=== PATIENT | male | born 1935 | race Caucasian/White ===

== ENCOUNTER 2017-06-16 13:39 | Outpatient (CLI) | payer MEDICARE ==
--- NOTE | 2017-06-16 14:32 | RAD ---
RIGHT SHOULDER THREE VIEWS: History: Fall. Right shoulder pain. FINDINGS/IMPRESSION: Degenerative changes are present. No acute fracture or dislocation identified. POS: [facility]
== END 2017-06-16 13:40 | disposition home or self-care (01) ==
LOC: SCSRAD 13:39
PROVIDERS: ATTEND Nurse Practitioner Family
DX: M25.511 Pain in right shoulder (principal); M19.011 Primary osteoarthritis, right shoulder

== ENCOUNTER 2017-12-06 10:50 | Emergency (ER) | payer MEDICARE ==
[2017-12-06 11:35] LABS: #Lymphocytes 0.9 thou/uL (1.20-3.40); #Monocytes 0.6 thou/uL (0.11-0.59); #Neutrophils 6.3 thou/uL (1.40-6.50); %Basophils 0.1 % (0.0-1.0); %Eosinophils 0.5 % (0.0-10.0); %Lymphocytes 11.4 % (21.0-51.0); %Monocytes 7.6 % (0.0-10.0); %Neutrophils 80.4 % (42.0-75.0); Hemoglobin 17.9 g/dL (14.0-18.0); Mean Corpuscular HGB CONC 33.8 g/dL (32.0-36.0); Mean Corpuscular Hemoglobin 30.2 pg (27.0-31.0); Mean Corpuscular Volume 89.3 fL (78.0-98.0); Mean Platelet Volume 7.5 fL (7.4-10.4); Platelet Count 209 thou/uL (130-400); RBC Distribution Width 12.1 % (11.5-14.5); Red Blood Cell (RBC) Count 5.91 mill/uL (4.70-6.10); White Blood Cell (WBC) Count 7.8 thou/uL (4.8-10.8)
[2017-12-06] MEDS ORDERED: Dexamethasone 4 mg/ml Vial ONE (11:40)
[2017-12-06 11:56] LABS: ALT (SGPT) 13 U/L (8-55); AST (SGOT) 26 U/L (5-34); Albumin 4.5 g/dL (3.4-4.8); Alkaline Phosphatase 95 U/L (40-150); Anion Gap 12 mmol/L (10-20); BUN (Urea Nitrogen) 18 mg/dL (8.4-25.7); Bilirubin, Total 1.4 mg/dL (0.2-1.2); Calc. Creatinine Clearance 0 mL/min (70-130); Calcium 9.6 mg/dL (7.8-10.44); Carbon Dioxide 24 mmol/L (23-31); Chloride 103 mmol/L (98-107); Estimated GFR-MDRD 59; Globulin 3.1 g/dL (2.4-3.5); Glucose 157 mg/dL (83-110); Potassium 4.3 mmol/L (3.5-5.1); Protein, Total 7.6 g/dL (5.8-8.1); Sodium 135 mmol/L (136-145)
[2017-12-06] MEDS ORDERED: Ketorolac Tromethamine 30 MG/ML VIAL ONE (13:44)
--- NOTE | 2017-12-06 15:18 | MRI ---
MRI LUMBAR SPINE NONCONTRAST: DATE: 12/06/17. HISTORY: An 82-year-old male with low back pain and right lower extremity weakness, difficulty walking. Rule out cauda equina syndrome and rule out cord compression. COMPARISON: 10/12/16. FINDINGS: For the purposes of this report, it will be assumed that there are 5 lumbar-type vertebrae. Vertebra l body heights are maintained. Bone marrow signal is normal. Predominantly mild disk space narrowin g at all levels. The worst level is L3-4, where there is moderate disk space narrowing. Images obta ined from T10-11 through mid S2. There is no cord impingement at any level from T10-11 to the conus medullaris, which terminates at L1 -2. T10-11: Right paracentral shallow disk herniation effacing the right ventral aspect of the thecal sa c. Mild central stenosis. Mild to moderate right neural foraminal stenosis. No left neural foramin al stenosis. T11-12: Only imaged on sagittal images. Essentially normal. T12-L1: Small left paracentral focal disk herniation. No central stenosis. Mild left neural forami nal stenosis. L1-2: Central and left paracentral focal disk herniation. No significant central stenosis and no si gnificant neural foraminal stenosis. L2-3: Mild diffuse disk bulge. No central stenosis and no significant neural foraminal stenosis. L3-4: Thickened ligamentum flavum. Prominent diffuse disk bulge. Superimposed left paracentral/lat eral disk extrusion with inferior migration of extruded disk material. This was present previously, but the inferior migration is slightly greater on the current MRI, to the pedicle level of L4, effaci ng the left side of the spinal canal and thecal sac, posteromedially displacing the left L4 nerve henry t. Overall moderate degree of central spinal canal stenosis. Moderate bilateral neural foraminal st enosis. Mild to moderate bilateral degenerative facet disease. Ligamentum flavum thickening. L4-5: Diffuse disk bulge plus superimposed small central disk herniation with mild inferior migratio n of extruded disk material to the pedicle level of L5. This contacts the bilateral L5 nerve roots. No significant central spinal canal stenosis despite this. Mild to moderate bilateral neural forami nal stenosis. Degenerative facet changes are mild to moderate. 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 There is mild to moderate right neural foraminal stenosis, and severe left neural foraminal stenosis, which has worsened since 10/12/16, with left lateral and fat lateral component of broad-based disk he rniation impinging on the exiting left L5 nerve root. The spinal canal and thecal sac are generous i n caliber. IMPRESSION: 1. Lumbar spondylosis, with multilevel mild and moderate degenerative disk disease. 2. Moderate central spinal canal stenosis at L3-4. 3. Left lateral extruded disk herniation at L3-4 displacing the left L4 nerve root. 4. Interval worsening of now severe left neural foraminal stenosis at L5-S1, impinging on the exitin g left L5 nerve root. 5. Bilateral L5 spondylolysis causing grade I spondylolisthesis at L5-S1. 6. No impingement upon the lower spinal cord. NEREIDA Flores POS: [facility]
== END 2017-12-06 17:25 ==
LOC: ERS 10:50
DX: M51.16 Intervertebral disc disorders with radiculopathy, lumbar region (principal); E11.9 Type 2 diabetes mellitus without complications; E03.9 Hypothyroidism, unspecified; E78.5 Hyperlipidemia, unspecified; I10 Essential (primary) hypertension; Z79.84 Long term (current) use of oral hypoglycemic drugs; Z79.899 Other long term (current) drug therapy
CPT/HCPCS: 72148; 80053; 85025; 96374; 96375; 96376; J1100; J1885; J2270

== ENCOUNTER 2018-02-11 10:38 | Outpatient (CLI) | payer MEDICARE ==
--- NOTE | 2018-02-11 16:27 | NM ---
NUCLEAR MEDICINE BONE SCAN: 02/11/18 HISTORY: Malignant neoplasm of the prostate. Rising PSA. COMPARISON: 09/07/16. TECHNIQUE: Patient is administered 31 millicuries of technetium 99m MDP intravenously. After appropriate delay, whole body imaging is performed. FINDINGS: There is physiologic and expected distribution of the radiotracer. Persistent uptake in both knees an d shoulders as well as the cervical spine on the basis of degenerative change. Limited evaluation of the pelvis due to urinary retention. There is urinary contamination in the pelv is. IMPRESSION: No scintigraphic evidence of osseous metastasis. POS: [facility]
== END 2018-02-11 10:39 | disposition home or self-care (01) ==
LOC: NM 10:38
PROVIDERS: ATTEND Urology
DX: R97.21 Rising PSA following treatment for malignant neoplasm of prostate (principal); N39.0 Urinary tract infection, site not specified
CPT/HCPCS: 78306; A9503

== ENCOUNTER 2018-02-21 10:33 | Outpatient (CLI) | payer MEDICARE ==
--- NOTE | 2018-02-21 14:57 | CT ---
CT ABDOMEN AND PELVIS WITH AND WITHOUT IV CONTRAST: Date: 02/21/18 HISTORY: 82-year-old male with prostate cancer and elevated PSA. FINDINGS: There are vascular calcifications without evidence of dilatation of the abdominal aorta. The lung bas es are unremarkable. The liver, spleen, pancreas, and adrenal glands are unremarkable. No calcified g allstones are seen. There is a large duodenal diverticulum arising from the second portion of the duo denum. No calculi seen in the kidneys, ureters, or the urinary bladder. No hydroureteronephrosis seen on eit her side. Postcontrast images demonstrate no evidence of enhancing or solid renal mass. An exophytic 3.7 cm cys t is seen arising from the left kidney. There is normal contrast excretion into the ureters and the u rinary bladder. The prostate is enlarged. No free air, free fluid, or lymphadenopathy noted in the abdomen or pelvis. There is colonic divertic ulosis without evidence of diverticulitis. There are degenerative changes in the spine. No evidence o f osteolytic or osteoblastic lesions are seen. IMPRESSION: 1. No CT evidence of urinary tract calculi or obstruction. 2. Left renal cyst. 3. Duodenal diverticulum. 4. Prostatic enlargement. 5. Colonic diverticulosis. POS: [facility]
== END 2018-02-21 10:34 | disposition home or self-care (01) ==
LOC: SCSCT 10:33
PROVIDERS: ATTEND Urology
DX: R97.21 Rising PSA following treatment for malignant neoplasm of prostate (principal); N39.0 Urinary tract infection, site not specified; N28.1 Cyst of kidney, acquired; K57.10 Diverticulosis of small intestine without perforation or abscess without bleeding; K57.30 Diverticulosis of large intestine without perforation or abscess without bleeding; N40.0 Benign prostatic hyperplasia without lower urinary tract symptoms
CPT/HCPCS: 74178; 82565

== ENCOUNTER 2020-04-22 11:06 | Emergency (ER) | payer MEDICARE ==
[2020-04-22 13:14] LABS: #Eosinphils 0.1 thou/uL (0.0-0.7); #Lymphocytes 0.9 thou/uL (1.20-3.40); #Monocytes 0.9 thou/uL (0.11-0.59); #Neutrophils 8.2 thou/uL (1.40-6.50); %Eosinophils 1.3 % (0.0-10.0); %Lymphocytes 9.2 % (21.0-51.0); %Monocytes 9.3 % (0.0-10.0); %Neutrophils 80.3 % (42.0-75.0); Hemoglobin 16.2 g/dL (14.0-18.0); Mean Corpuscular HGB CONC 33.1 g/dL (32.0-36.0); Mean Corpuscular Hemoglobin 29.7 pg (27.0-31.0); Mean Corpuscular Volume 89.8 fL (78.0-98.0); Platelet Count 286 thou/uL (130-400); RBC Distribution Width 12.1 % (11.5-14.5); Red Blood Cell (RBC) Count 5.45 mill/uL (4.70-6.10); White Blood Cell (WBC) Count 10.2 thou/uL (4.8-10.8)
[2020-04-22 13:55] LABS: ALT (SGPT) 13 U/L (8-55); AST (SGOT) 14 U/L (5-34); Albumin 3.8 g/dL (3.4-4.8); Alkaline Phosphatase 75 U/L (40-110); BUN (Urea Nitrogen) 18 mg/dL (8.4-25.7); Bilirubin, Total 0.5 mg/dL (0.2-1.2); Calc. Creatinine Clearance 0 mL/min (70-130); Calcium 9.4 mg/dL (7.8-10.44); Chloride 104 mmol/L (98-107); Globulin 3.8 g/dL (2.4-3.5); Glucose 187 mg/dL (83-110); Potassium 3.9 mmol/L (3.5-5.1); Protein, Total 7.6 g/dL (5.8-8.1); Sodium 139 mmol/L (136-145)
[2020-04-22 14:50] LABS: Bilirubin Negative (Negative); Blood, Urine Moderate (Negative); Glucose, Urine (Dipstick) Negative (Negative); Ketone, Urine Negative (Negative); Leukocyte Moderate (Negative); Nitrite Positive (Negative); Protein, Urine (Dipstick) 30 mg/dL (Neg-Trace); Specific Gravity, Urine 1.025 (1.005-1.030); Urobilinogen 0.2 mg/dL (Less than 2)
[2020-04-22 14:52] LABS: Clarity Turbid (Clear)
[2020-04-22 14:53] LABS: Carbon Dioxide 19 mmol/L (23-31)
[2020-04-22 14:56] LABS: Anion Gap 20 mmol/L (10-20)
[2020-04-22 15:15] LABS: Bacteria/HPF 4+ HPF (None Seen); Squamous Epithelial None Seen HPF (0-3); WBC/HPF Greater Than 50 HPF (0-3)
[2020-04-22] MEDS ORDERED: cefTRIAXone\\ROCEPHIN 2 GM VIAL ONE (15:48)
== END 2020-04-22 15:20 | disposition home or self-care (01) ==
LOC: ERS 11:06
DX: N30.00 Acute cystitis without hematuria (principal); R33.9 Retention of urine, unspecified; E11.9 Type 2 diabetes mellitus without complications; E03.9 Hypothyroidism, unspecified; E78.5 Hyperlipidemia, unspecified; E78.00 Pure hypercholesterolemia, unspecified; I10 Essential (primary) hypertension; Z79.899 Other long term (current) drug therapy
CPT/HCPCS: 36415; 51702; 80053; 81003; 81015; 85025; 96365; J0696

== ENCOUNTER 2020-05-14 06:44 | Outpatient (CLI) | payer MEDICARE ==
[2020-05-14 12:54] LABS: Hemoglobin 14.8 g/dL (14.0-18.0); Mean Corpuscular HGB CONC 32.4 G/DL (32.0-36.0); Mean Corpuscular Hemoglobin 28.8 PG (27.0-33.0); Mean Corpuscular Volume 89.1 fl (80.0-100.0); Mean Platelet Volume 9.9 fl (7.4-10.4); Platelet Count 222 10x3/uL (130-400); RBC Distribution Width 13.5 % (11.5-14.5); Red Blood Cell (RBC) Count 5.13 10x6/uL (4.40-5.80); White Blood Cell (WBC) Count 5.3 10x3/uL (4.5-11.0)
[2020-05-14 13:12] LABS: PTT 37.6 sec (22.0-33.0); Prothrombin Time 10.9 sec (9.5-12.1)
[2020-05-14 13:28] LABS: Anion Gap 15 mmol/L (10-20); BUN (Urea Nitrogen) 14 mg/dL (8.4-25.7); Calc. Creatinine Clearance 0 mL/min (70-130); Calcium 9.2 mg/dL (7.8-10.44); Carbon Dioxide 22 mmol/L (23-31); Chloride 107 mmol/L (98-107); Glucose 168 mg/dL (83-110); Potassium 4.4 mmol/L (3.5-5.1); Sodium 140 mmol/L (136-145)
[2020-05-15 17:21] LABS: SARS-CoV-2 PCR by NAA Not Detected (NotDetected)
--- NOTE | 2020-05-16 09:10 | EKG ---
Test Reason : Blood Pressure : / mmHG Vent. Rate : 094 BPM Atrial Rate : 094 BPM P-R Int : 166 ms QRS Dur : 078 ms QT Int : 348 ms P-R-T Axes : 056 -22 056 degrees QTc Int : 435 ms Normal sinus rhythm Low voltage QRS Cannot rule out Anterior infarct , age undetermined Abnormal ECG No previous ECGs available Confirmed by WICHO HURT ([id number]) on 05/16/2020 9:10:21 AM Referred By: AL Confirmed By:WICHO HURT
== END 2020-05-14 06:45 | disposition home or self-care (01) ==
LOC: LABBT 06:44
PROVIDERS: ATTEND Urology
DX: Z01.818 Encounter for other preprocedural examination (principal); Z01.812 Encounter for preprocedural laboratory examination; N40.1 Benign prostatic hyperplasia with lower urinary tract symptoms; E11.22 Type 2 diabetes mellitus with diabetic chronic kidney disease; C61 Malignant neoplasm of prostate; N39.41 Urge incontinence; R35.0 Frequency of micturition; F01.50 Vascular dementia, unspecified severity, without behavioral disturbance, psychotic disturbance, mood disturbance, and anxiety; R26.9 Unspecified abnormalities of gait and mobility; N18.2 Chronic kidney disease, stage 2 (mild); M47.12 Other spondylosis with myelopathy, cervical region; G95.9 Disease of spinal cord, unspecified; G83.4 Cauda equina syndrome; E11.42 Type 2 diabetes mellitus with diabetic polyneuropathy; Z20.822 Contact with and (suspected) exposure to COVID-19; N40.0 Benign prostatic hyperplasia without lower urinary tract symptoms
CPT/HCPCS: 80048; 85027; 85610; 85730; 87086; 93005; U0003; U0005; 87077; 87186; 87635; 93010

== ENCOUNTER 2020-05-17 06:58 | Day surgery (SDC) | payer MEDICARE ==
[2020-05-16 10:51] VITALS: BMI 25.7
[2020-05-17] MEDS ORDERED: Levofloxacin 500 mg/D5W 100 ml Premix Bag ONE (07:19)
[2020-05-17] MEDS ORDERED: Midazolam HCl 2 mg/2 ml Vial ONE (08:37)
[2020-05-17] MEDS ORDERED: Fentanyl 100 MCG/2 ML VIAL ONE (08:38)
[2020-05-17] MEDS ORDERED: Propofol 500 MG/50 ML VIAL ONE (08:38)
[2020-05-17] MEDS ORDERED: B & O ONE (09:03)
[2020-05-17] MEDS ORDERED: PROPOFOL 200 MG/20 ML VIAL ONE (10:14)
[2020-05-17] MEDS ORDERED: Lidocaine 1% PF 5 ML VIAL ONE (10:14)
--- NOTE | 2020-05-17 11:29 | OP ---
DATE OF PROCEDURE: 05/16/2020 SERVICE: Urology. PREOPERATIVE DIAGNOSIS: Benign prostatic hyperplasia with urinary obstruction. POSTOPERATIVE DIAGNOSIS: Benign prostatic hyperplasia with urinary obstruction. PROCEDURE PERFORMED: UroLift with 8 implants, 7 implants into the patient, one was discarded. INDICATION FOR PROCEDURE: Mr. Shrestha is an 84-year-old white male with BPH and urinary complaints. He is already on medication and has failed to improve. He has significant obstruction both by uroflow and visualization. I recommend the UroLift procedure with risks and benefits discussed and he agreed to proceed forward. DESCRIPTION OF PROCEDURE: After identification of armband and verification of consent, the patient was brought to the operating room, where he underwent total intravenous anesthesia. He was placed in a dorsal lithotomy position and prepped and draped in usual sterile fashion. After appropriate time-out, a lubricated 21-Macanese rigid cystoscope with visual obturator was passed through the urethra into the prostate. The prostate showed significant obstruction primarily on the right lateral lobe. The bladder was heavily trabeculated with standard inflammatory findings consistent with catheters usage. The cystoscope visual obturator was switched out for the UroLift device. Initial implantation was done on the patient's right bladder neck by positioning the bladder neck and withdrawing approximately 2 cm upward and lateral compression was done by at least 20 degrees. The blue safety was released and the blue trigger fired to deploy the Nitinol needle. The capsular tab and tension was set with the up trigger. The UroLift was then advanced forward until the white line was in the keyhole and then the urethral and piece deployed with the back blue tab. This resulted in nice lateral anterior compression. This was then repeated on the patient's left bladder neck away from the actual bladder neck itself. Apical implants were placed on the right and left side. There was a misfire on the patient's left side at the left apex, which required another UroLift to be used there. Additional implants were then placed both midway between the left and right side, between the first two implants somewhat anteriorly to get further compression. At this point, there was still a significant amount of lateral lobe protrusion on the right side, so another implant was used to tack the right side over further approximately midway, little bit closer towards the proximal aspect of the prostate and there was some sagging on the left anterior prostate, which another implant was used there. A total of 7 implants were left in the patient and again one implant was discarded due to a misfire and a pull-through. Upon completion, the prostate did appear to be significantly opened up. I felt comfortable with the channel being adequately opened for adequate flow. The bladder was left full and the cystoscope was withdrawn and an 18-Macanese Everett catheter was placed with ease into the patient's bladder with 10 mL of sterile water placed into the balloon. He was then taken out of positioning, and B and O suppository placed. He was awakened, taken back to Day Stay for recovery in stable condition. COMPLICATIONS: None. ESTIMATED BLOOD LOSS: Minimal. RETAINED TUBES AND DRAINS: 18-Macanese Everett catheter. SPECIMENS: None. IMPLANTS USED: 8, 7 in the patient. DISPOSITION: The patient will undergo a void trial and be discharged home either with or without a catheter, pending his void trial. Job ID: [id number]
== END 2020-05-17 15:10 | disposition home or self-care (01) ==
LOC: SDC 06:58
PROVIDERS: ATTEND Urology
PROC: 0T7D8DZ Dilation of Urethra with Intraluminal Device, Via Natural or Artificial Opening Endoscopic (ICD-10-PCS; principal; 2020-05-17)
DX: N40.1 Benign prostatic hyperplasia with lower urinary tract symptoms (principal); N39.41 Urge incontinence; R35.0 Frequency of micturition; R39.12 Poor urinary stream; E11.42 Type 2 diabetes mellitus with diabetic polyneuropathy; E11.22 Type 2 diabetes mellitus with diabetic chronic kidney disease; N18.2 Chronic kidney disease, stage 2 (mild); E03.9 Hypothyroidism, unspecified; E78.5 Hyperlipidemia, unspecified; F01.50 Vascular dementia, unspecified severity, without behavioral disturbance, psychotic disturbance, mood disturbance, and anxiety; R26.9 Unspecified abnormalities of gait and mobility; C61 Malignant neoplasm of prostate; Z79.899 Other long term (current) drug therapy
CPT/HCPCS: C1889; C9740; J1956; J2250; J2704; J3010; L8699

== ENCOUNTER 2020-08-16 11:41 | Inpatient (IN) | payer MEDICARE ==
[2020-08-16 12:16] LABS: #Eosinphils 0.1 thou/uL (0.0-0.7); #Lymphocytes 0.6 thou/uL (1.20-3.40); #Monocytes 0.8 thou/uL (0.11-0.59); #Neutrophils 7.8 thou/uL (1.40-6.50); %Basophils 0.2 % (0.0-1.0); %Eosinophils 0.8 % (0.0-10.0); %Lymphocytes 6.7 % (21.0-51.0); %Monocytes 8.8 % (0.0-10.0); %Neutrophils 83.5 % (42.0-75.0); Mean Corpuscular HGB CONC 32.7 g/dL (32.0-36.0); Mean Corpuscular Hemoglobin 29.4 pg (27.0-31.0); Mean Platelet Volume 7.5 fL (7.4-10.4); Platelet Count 218 thou/uL (130-400); RBC Distribution Width 12.4 % (11.5-14.5); Red Blood Cell (RBC) Count 5.76 mill/uL (4.70-6.10); White Blood Cell (WBC) Count 9.3 thou/uL (4.8-10.8)
[2020-08-16 12:38] LABS: ALT (SGPT) 10 U/L (8-55); AST (SGOT) 10 U/L (5-34); Albumin 4.1 g/dL (3.4-4.8); Alkaline Phosphatase 108 U/L (40-110); Anion Gap 15 mmol/L (10-20); BUN (Urea Nitrogen) 21 mg/dL (8.4-25.7); Bilirubin, Total 1.7 mg/dL (0.2-1.2); Calc. Creatinine Clearance 0 mL/min (70-130); Calcium 9.7 mg/dL (7.8-10.44); Carbon Dioxide 26 mmol/L (23-31); Chloride 103 mmol/L (98-107); Globulin 3.5 g/dL (2.4-3.5); Glucose 198 mg/dL (83-110); Potassium 4.4 mmol/L (3.5-5.1); Protein, Total 7.6 g/dL (5.8-8.1); Sodium 140 mmol/L (136-145)
[2020-08-16] MEDS ORDERED: MEROPENEM 1 GM/50 ML 1 GM in Premix Bag 1 BAG IVPB SCH (12:45)
[2020-08-16] MEDS ORDERED: Ondansetron ODT 4 MG TAB PO PRN (15:47)
[2020-08-16] MEDS ORDERED: Acetaminophen 325 MG TAB PO PRN (15:47)
[2020-08-16] MEDS ORDERED: Ondansetron PF 4 MG/2 ML Vial IVP PRN (15:47)
[2020-08-16] MEDS ORDERED: Enoxaparin Sodium 40 MG/0.4 ML SYRINGE SC SCH (16:00)
[2020-08-16] MEDS ORDERED: Dextrose 50% Abboject 50 ML SYRINGE SLOW IVP PRN (16:20)
[2020-08-16] MEDS ORDERED: Dextrose 5% in Water 1,000 ML IV PRN (16:20)
[2020-08-16 16:25] LABS: #Eosinphils 0.1 thou/uL (0.0-0.7); #Lymphocytes 0.9 thou/uL (1.20-3.40); #Monocytes 0.8 thou/uL (0.11-0.59); #Neutrophils 4.9 thou/uL (1.40-6.50); %Basophils 0.4 % (0.0-1.0); %Eosinophils 1.8 % (0.0-10.0); %Lymphocytes 13.5 % (21.0-51.0); %Monocytes 12.4 % (0.0-10.0); %Neutrophils 71.8 % (42.0-75.0); Hemoglobin 15.6 g/dL (14.0-18.0); Mean Corpuscular HGB CONC 32.4 g/dL (32.0-36.0); Mean Corpuscular Hemoglobin 29.2 pg (27.0-31.0); Mean Corpuscular Volume 90.1 fL (78.0-98.0); Mean Platelet Volume 7.3 fL (7.4-10.4); Platelet Count 183 thou/uL (130-400); RBC Distribution Width 12.2 % (11.5-14.5); Red Blood Cell (RBC) Count 5.33 mill/uL (4.70-6.10); White Blood Cell (WBC) Count 6.8 thou/uL (4.8-10.8)
[2020-08-16 16:49] LABS: Anion Gap 15 mmol/L (10-20); BUN (Urea Nitrogen) 18 mg/dL (8.4-25.7); Calc. Creatinine Clearance 0 mL/min (70-130); Calcium 9.1 mg/dL (7.8-10.44); Carbon Dioxide 21 mmol/L (23-31); Chloride 108 mmol/L (98-107); Glucose 107 mg/dL (83-110); Sodium 140 mmol/L (136-145)
[2020-08-16 18:25] VITALS: BMI 25.9
[2020-08-16] MEDS: Meropenem 500 MG in Sodium Chloride 0.9% 100 ML IVPB SCH (20:53)
[2020-08-17] MEDS: Meropenem 500 MG in Sodium Chloride 0.9% 100 ML IVPB SCH ×3 (05:30→20:17)
[2020-08-17 06:19] LABS: Anion Gap 13 mmol/L (10-20); BUN (Urea Nitrogen) 17 mg/dL (8.4-25.7); Calc. Creatinine Clearance 65 mL/min (70-130); Calcium 8.6 mg/dL (7.8-10.44); Carbon Dioxide 20 mmol/L (23-31); Chloride 109 mmol/L (98-107); Glucose 141 mg/dL (83-110); Potassium 3.7 mmol/L (3.5-5.1); Sodium 138 mmol/L (136-145)
[2020-08-17] MEDS: HumaLOG 300 UNITS/3 ML VIAL SC PRN ×2 (12:46→17:04)
[2020-08-17 17:42] LABS: SARS-CoV-2 PCR NAA for Saliva Not Detected (NotDetected)
[2020-08-17] MEDS: Phenazopyridine HCl 100 MG TAB PO SCH (20:17)
[2020-08-17] MEDS: Loperamide HCl 2 MG CAP PO SCH (20:17)
[2020-08-17] MEDS: Tamsulosin HCl 0.4 MG CAP PO SCH (20:17)
[2020-08-18] MEDS: Meropenem 500 MG in Sodium Chloride 0.9% 100 ML IVPB SCH ×3 (04:01→20:32)
[2020-08-18] MEDS: Levothyroxine Sodium 125 MCG TAB PO SCH (05:15)
[2020-08-18] MEDS: Loperamide HCl 2 MG CAP PO SCH ×2 (07:48→20:32)
[2020-08-18] MEDS: Tamsulosin HCl 0.4 MG CAP PO SCH ×2 (07:49→20:58)
[2020-08-18] MEDS: Phenazopyridine HCl 100 MG TAB PO SCH ×2 (07:49→20:32)
[2020-08-18] MEDS: HumaLOG 300 UNITS/3 ML VIAL SC PRN ×2 (12:18→17:09)
[2020-08-19] MEDS: Meropenem 500 MG in Sodium Chloride 0.9% 100 ML IVPB SCH ×3 (05:30→20:18)
[2020-08-19] MEDS: Levothyroxine Sodium 125 MCG TAB PO SCH (05:30)
[2020-08-19] MEDS: Tamsulosin HCl 0.4 MG CAP PO SCH ×2 (08:07→20:17)
[2020-08-19] MEDS: Phenazopyridine HCl 100 MG TAB PO SCH ×2 (08:07→20:17)
[2020-08-19] MEDS: Loperamide HCl 2 MG CAP PO SCH ×2 (08:07→20:17)
[2020-08-19] MEDS: HumaLOG 300 UNITS/3 ML VIAL SC PRN (12:36)
[2020-08-20] MEDS: Levothyroxine Sodium 125 MCG TAB PO SCH (05:02)
[2020-08-20] MEDS: Meropenem 500 MG in Sodium Chloride 0.9% 100 ML IVPB SCH (05:03)
[2020-08-20 08:11] VITALS: BP 152/89; TEMP 97.7
[2020-08-20] MEDS: Tamsulosin HCl 0.4 MG CAP PO SCH (08:11)
[2020-08-20] MEDS: Loperamide HCl 2 MG CAP PO SCH (08:11)
[2020-08-20] MEDS: Phenazopyridine HCl 100 MG TAB PO SCH (08:11)
== END 2020-08-20 13:25 | disposition home or self-care (01) | DRG 698 ==
LOC: ERS 11:41 → SURG A 15:49
PROVIDERS: ADMIT Internal Medicine; ATTEND Family Medicine
DX: T83.510A Infection and inflammatory reaction due to cystostomy catheter, initial encounter (principal); A41.59 Other Gram-negative sepsis; N39.0 Urinary tract infection, site not specified; N17.9 Acute kidney failure, unspecified; Z20.822 Contact with and (suspected) exposure to COVID-19; N40.0 Benign prostatic hyperplasia without lower urinary tract symptoms; E11.9 Type 2 diabetes mellitus without complications; R63.0 Anorexia; E03.9 Hypothyroidism, unspecified; E78.5 Hyperlipidemia, unspecified; E78.00 Pure hypercholesterolemia, unspecified; I10 Essential (primary) hypertension; F03.90 Unspecified dementia, unspecified severity, without behavioral disturbance, psychotic disturbance, mood disturbance, and anxiety; Y84.6 Urinary catheterization as the cause of abnormal reaction of the patient, or of later complication, without mention of misadventure at the time of the procedure; Z98.890 Other specified postprocedural states; Z79.890 Hormone replacement therapy; Z79.899 Other long term (current) drug therapy; Z68.26 Body mass index [BMI] 26.0-26.9, adult; Z85.46 Personal history of malignant neoplasm of prostate; Z92.3 Personal history of irradiation
CPT/HCPCS: 36415; 36416; 51701; 80048; 80053; 83605; 85025; 87040; 87077; 87086; 87186; 87635; 93005; 96365; J1650; J1815; J2185; J3490; U0003; U0005

== ENCOUNTER 2020-12-06 13:56 | Outpatient (CLI) | payer MEDICARE ==
[2020-12-07 16:42] LABS: SARS-CoV-2 PCR by NAA Not Detected (NotDetected)
== END 2020-12-06 13:57 | disposition home or self-care (01) ==
LOC: LABBT 13:56
PROVIDERS: ATTEND Urology
DX: Z01.812 Encounter for preprocedural laboratory examination (principal); N39.45 Continuous leakage; Z20.822 Contact with and (suspected) exposure to COVID-19
CPT/HCPCS: U0003; U0005

== ENCOUNTER 2020-12-11 08:35 | Day surgery (SDC) | payer MEDICARE ==
[2020-12-10 13:52] VITALS: BMI 26.6
[2020-12-11 09:23] LABS: #Eosinphils 0.2 thou/uL (0.0-0.7); #Lymphocytes 1.2 thou/uL (1.20-3.40); #Monocytes 0.7 thou/uL (0.11-0.59); #Neutrophils 5.6 thou/uL (1.40-6.50); %Basophils 0.2 % (0.0-1.0); %Eosinophils 3.1 % (0.0-10.0); %Lymphocytes 15.8 % (21.0-51.0); %Monocytes 9.2 % (0.0-10.0); %Neutrophils 71.8 % (42.0-75.0); Hemoglobin 15.1 g/dL (14.0-18.0); Mean Corpuscular HGB CONC 33.8 g/dL (32.0-36.0); Mean Corpuscular Hemoglobin 30.2 pg (27.0-31.0); Mean Corpuscular Volume 89.5 fL (78.0-98.0); Mean Platelet Volume 6.6 fL (7.4-10.4); Platelet Count 229 thou/uL (130-400); RBC Distribution Width 12.2 % (11.5-14.5); White Blood Cell (WBC) Count 7.8 thou/uL (4.8-10.8)
[2020-12-11 09:35] LABS: Prothrombin Time 13.2 sec (12.0-14.7)
[2020-12-11] MEDS ORDERED: Sodium Bicarbonate 2.5 MEQ/5 ML VIAL ONE (10:16)
[2020-12-11 10:18] VITALS: BP 143/94; TEMP 98.1
[2020-12-11] MEDS ORDERED: B & O PR SCH (10:30)
== END 2020-12-11 12:45 | disposition home or self-care (01) ==
LOC: CT 08:35
PROVIDERS: ATTEND Urology
PROC: 0T9B30Z Drainage of Bladder with Drainage Device, Percutaneous Approach (ICD-10-PCS; principal; 2020-12-11)
DX: N39.45 Continuous leakage (principal); N40.1 Benign prostatic hyperplasia with lower urinary tract symptoms; N39.41 Urge incontinence; R35.0 Frequency of micturition; R35.1 Nocturia; R39.12 Poor urinary stream; R33.8 Other retention of urine; E11.42 Type 2 diabetes mellitus with diabetic polyneuropathy; L71.9 Rosacea, unspecified; E03.9 Hypothyroidism, unspecified; E78.5 Hyperlipidemia, unspecified; I12.9 Hypertensive chronic kidney disease with stage 1 through stage 4 chronic kidney disease, or unspecified chronic kidney disease; E11.22 Type 2 diabetes mellitus with diabetic chronic kidney disease; N18.2 Chronic kidney disease, stage 2 (mild); F01.50 Vascular dementia, unspecified severity, without behavioral disturbance, psychotic disturbance, mood disturbance, and anxiety; M47.12 Other spondylosis with myelopathy, cervical region; G83.4 Cauda equina syndrome; Z85.46 Personal history of malignant neoplasm of prostate; Z79.2 Long term (current) use of antibiotics; Z79.899 Other long term (current) drug therapy
CPT/HCPCS: 51102; 77002; 85025; 85610; 85730; C2627

== ENCOUNTER 2021-03-07 08:32 | Day surgery (SDC) | payer MEDICARE ==
[2021-03-07] MEDS ORDERED: cefTRIAXone\\ROCEPHIN 1 GM in Sodium Chloride 0.9% 100 ML IVPB SCH (09:00)
[2021-03-07 10:13] VITALS: BP 138/79; TEMP 98.3
[2021-03-07] MEDS ORDERED: Heparin 1,000 UNITS/ML VIAL ONE (14:53)
== END 2021-03-07 10:47 | disposition home or self-care (01) ==
LOC: SPEC 08:32 → ONC/OP 10:47
PROVIDERS: ATTEND Internal Medicine
PROC: 02HV33Z Insertion of Infusion Device into Superior Vena Cava, Percutaneous Approach (ICD-10-PCS; principal; 2021-03-07)
DX: R78.81 Bacteremia (principal); B96.1 Klebsiella pneumoniae [K. pneumoniae] as the cause of diseases classified elsewhere; E03.9 Hypothyroidism, unspecified; E11.42 Type 2 diabetes mellitus with diabetic polyneuropathy; G83.4 Cauda equina syndrome; N32.81 Overactive bladder; E78.5 Hyperlipidemia, unspecified; I10 Essential (primary) hypertension; Z85.46 Personal history of malignant neoplasm of prostate; Z87.440 Personal history of urinary (tract) infections; Z79.2 Long term (current) use of antibiotics; Z79.899 Other long term (current) drug therapy
CPT/HCPCS: 36569; 96365; C1751; J0696; J1644; J3490

== ENCOUNTER 2021-11-10 12:25 | Inpatient (IN) | payer MEDICARE ==
[2021-11-10 13:24] LABS: #Eosinphils 0.5 thou/uL (0.0-0.7); #Lymphocytes 1.9 thou/uL (1.20-3.40); #Neutrophils 6.8 thou/uL (1.40-6.50); %Eosinophils 4.9 % (0.0-10.0); %Lymphocytes 18.6 % (21.0-51.0); %Neutrophils 66.5 % (42.0-75.0); Mean Corpuscular HGB CONC 32.2 g/dL (32.0-36.0); Mean Corpuscular Hemoglobin 30.5 pg (27.0-31.0); Mean Corpuscular Volume 94.7 fL (78.0-98.0); Mean Platelet Volume 7.4 fL (7.4-10.4); Platelet Count 265 thou/uL (130-400); RBC Distribution Width 12.4 % (11.5-14.5); Red Blood Cell (RBC) Count 5.59 mill/uL (4.70-6.10); White Blood Cell (WBC) Count 10.2 thou/uL (4.8-10.8)
[2021-11-10] MEDS ORDERED: Piperacillin/Tazobactam 4.5 GM VIAL ONE (13:35)
[2021-11-10 13:43] LABS: ALT (SGPT) 13 U/L (8-55); AST (SGOT) 15 U/L (5-34); Albumin 3.3 g/dL (3.4-4.8); Alkaline Phosphatase 90 U/L (40-110); Anion Gap 17 mmol/L (10-20); BUN (Urea Nitrogen) 25 mg/dL (8.4-25.7); Bilirubin, Total 0.5 mg/dL (0.2-1.2); Calc. Creatinine Clearance 0 mL/min (70-130); Calcium 8.8 mg/dL (7.8-10.44); Carbon Dioxide 19 mmol/L (23-31); Chloride 104 mmol/L (98-107); Estimated GFR 69; Globulin 2.6 g/dL (2.4-3.5); Glucose 130 mg/dL (83-110); Potassium 4.1 mmol/L (3.5-5.1); Protein, Total 5.9 g/dL (5.8-8.1); Sodium 136 mmol/L (136-145)
[2021-11-10 15:10] LABS: Bilirubin Negative (Negative); Blood, Urine Large (Negative); Glucose, Urine (Dipstick) Negative (Negative); Ketone, Urine Negative (Negative); Leukocyte Moderate (Negative); Nitrite Positive (Negative); Protein, Urine (Dipstick) 100 mg/dL (Neg-Trace); Urobilinogen 0.2 mg/dL (Less than 2)
[2021-11-10 15:23] LABS: Clarity Cloudy (Clear)
[2021-11-10 15:24] LABS: Specific Gravity, Urine 1.019 (1.002-1.036)
[2021-11-10 15:28] LABS: Bacteria/HPF 2+ HPF (None Seen); Squamous Epithelial 0-3 HPF (0-3)
[2021-11-10 17:44] VITALS: BMI 23.7
[2021-11-10] MEDS ORDERED: Ondansetron ODT 4 MG TAB PO PRN (18:40)
[2021-11-10] MEDS ORDERED: Acetaminophen 325 MG TAB PO PRN (18:40)
[2021-11-10] MEDS ORDERED: Acetaminophen 650 MG Suppository PR PRN (18:40)
[2021-11-10] MEDS ORDERED: Ondansetron PF 4 MG/2 ML Vial IVP PRN (18:40)
[2021-11-10] MEDS: Sodium Chloride 0.9% 1,000 ML IV SCH (20:19)
[2021-11-10] MEDS: Heparin 5,000 UNITS/ML VIAL SC SCH (20:19)
[2021-11-11 06:03] LABS: #Basophils 0.1 thou/uL (0.0-0.2); #Eosinphils 0.4 thou/uL (0.0-0.7); #Lymphocytes 1.4 thou/uL (1.20-3.40); #Monocytes 0.8 thou/uL (0.11-0.59); %Basophils 0.9 % (0.0-1.0); %Eosinophils 4.2 % (0.0-10.0); %Lymphocytes 14.6 % (21.0-51.0); %Neutrophils 72.4 % (42.0-75.0); Mean Corpuscular HGB CONC 31.4 g/dL (32.0-36.0); Mean Corpuscular Hemoglobin 29.5 pg (27.0-31.0); Mean Corpuscular Volume 93.9 fL (78.0-98.0); Mean Platelet Volume 7.2 fL (7.4-10.4); Platelet Count 236 thou/uL (130-400); RBC Distribution Width 12.6 % (11.5-14.5); Red Blood Cell (RBC) Count 5.77 mill/uL (4.70-6.10); White Blood Cell (WBC) Count 9.7 thou/uL (4.8-10.8)
[2021-11-11 06:21] LABS: Anion Gap 13 mmol/L (10-20); BUN (Urea Nitrogen) 20 mg/dL (8.4-25.7); Calc. Creatinine Clearance 50 mL/min (70-130); Calcium 8.7 mg/dL (7.8-10.44); Carbon Dioxide 20 mmol/L (23-31); Chloride 108 mmol/L (98-107); Estimated GFR 67; Glucose 101 mg/dL (83-110); Potassium 4.4 mmol/L (3.5-5.1); Sodium 137 mmol/L (136-145)
[2021-11-11] MEDS: Levothyroxine Sodium 125 MCG TAB PO SCH (06:26)
[2021-11-11] MEDS: Sodium Chloride 0.9% 1,000 ML IV SCH ×2 (07:57→21:09)
[2021-11-11] MEDS: Heparin 5,000 UNITS/ML VIAL SC SCH ×2 (07:58→21:11)
[2021-11-12] MEDS: Levothyroxine Sodium 125 MCG TAB PO SCH (06:16)
[2021-11-12 06:52] LABS: Anion Gap 16 mmol/L (10-20); BUN (Urea Nitrogen) 14 mg/dL (8.4-25.7); Calc. Creatinine Clearance 56 mL/min (70-130); Calcium 8.9 mg/dL (7.8-10.44); Carbon Dioxide 19 mmol/L (23-31); Chloride 109 mmol/L (98-107); Estimated GFR 77; Glucose 108 mg/dL (83-110); Sodium 140 mmol/L (136-145)
[2021-11-12 07:10] LABS: #Eosinphils 0.5 thou/uL (0.0-0.7); #Lymphocytes 1.5 thou/uL (1.20-3.40); #Monocytes 0.6 thou/uL (0.11-0.59); #Neutrophils 7.5 thou/uL (1.40-6.50); %Basophils 0.2 % (0.0-1.0); %Lymphocytes 14.6 % (21.0-51.0); %Monocytes 6.1 % (0.0-10.0); Hemoglobin 16.8 g/dL (14.0-18.0); Mean Corpuscular HGB CONC 32.9 g/dL (32.0-36.0); Mean Corpuscular Hemoglobin 30.2 pg (27.0-31.0); Mean Platelet Volume 7.5 fL (7.4-10.4); Platelet Count 237 thou/uL (130-400); RBC Distribution Width 12.4 % (11.5-14.5); Red Blood Cell (RBC) Count 5.54 mill/uL (4.70-6.10); White Blood Cell (WBC) Count 10.2 thou/uL (4.8-10.8)
[2021-11-12] MEDS: Heparin 5,000 UNITS/ML VIAL SC SCH ×2 (08:13→21:04)
[2021-11-12] MEDS: Sodium Chloride 0.9% 1,000 ML IV SCH (08:18)
[2021-11-13] MEDS: Sodium Chloride 0.9% 1,000 ML IV SCH ×2 (01:51→13:15)
[2021-11-13 06:12] LABS: #Eosinphils 0.5 thou/uL (0.0-0.7); #Lymphocytes 1.6 thou/uL (1.20-3.40); #Monocytes 0.8 thou/uL (0.11-0.59); #Neutrophils 6.9 thou/uL (1.40-6.50); %Basophils 0.1 % (0.0-1.0); %Lymphocytes 16.6 % (21.0-51.0); %Monocytes 8.2 % (0.0-10.0); %Neutrophils 70.1 % (42.0-75.0); Hemoglobin 15.9 g/dL (14.0-18.0); Mean Corpuscular HGB CONC 32.6 g/dL (32.0-36.0); Mean Corpuscular Hemoglobin 30.1 pg (27.0-31.0); Mean Corpuscular Volume 92.4 fL (78.0-98.0); Mean Platelet Volume 7.5 fL (7.4-10.4); Platelet Count 238 thou/uL (130-400); RBC Distribution Width 12.3 % (11.5-14.5); Red Blood Cell (RBC) Count 5.26 mill/uL (4.70-6.10); White Blood Cell (WBC) Count 9.8 thou/uL (4.8-10.8)
[2021-11-13] MEDS: Levothyroxine Sodium 125 MCG TAB PO SCH (06:37)
[2021-11-13 06:38] LABS: Anion Gap 11 mmol/L (10-20); BUN (Urea Nitrogen) 12 mg/dL (8.4-25.7); Calc. Creatinine Clearance 60 mL/min (70-130); Calcium 8.8 mg/dL (7.8-10.44); Carbon Dioxide 24 mmol/L (23-31); Chloride 110 mmol/L (98-107); Estimated GFR 84; Glucose 105 mg/dL (83-110); Sodium 141 mmol/L (136-145)
[2021-11-13] MEDS: Heparin 5,000 UNITS/ML VIAL SC SCH ×2 (09:42→22:20)
[2021-11-14] MEDS: Sodium Chloride 0.9% 1,000 ML IV SCH (04:02)
[2021-11-14] MEDS: Levothyroxine Sodium 125 MCG TAB PO SCH (06:02)
[2021-11-14 06:21] LABS: #Eosinphils 0.5 thou/uL (0.0-0.7); #Lymphocytes 1.6 thou/uL (1.20-3.40); #Monocytes 0.7 thou/uL (0.11-0.59); #Neutrophils 6.6 thou/uL (1.40-6.50); %Basophils 0.3 % (0.0-1.0); %Eosinophils 5.2 % (0.0-10.0); %Lymphocytes 17.3 % (21.0-51.0); %Monocytes 7.8 % (0.0-10.0); %Neutrophils 69.4 % (42.0-75.0); Mean Corpuscular HGB CONC 33.5 g/dL (32.0-36.0); Mean Corpuscular Hemoglobin 30.5 pg (27.0-31.0); Mean Corpuscular Volume 91.2 fL (78.0-98.0); Mean Platelet Volume 7.3 fL (7.4-10.4); Platelet Count 222 thou/uL (130-400); RBC Distribution Width 12.4 % (11.5-14.5); Red Blood Cell (RBC) Count 5.23 mill/uL (4.70-6.10); White Blood Cell (WBC) Count 9.4 thou/uL (4.8-10.8)
[2021-11-14 06:49] LABS: Anion Gap 17 mmol/L (10-20); BUN (Urea Nitrogen) 13 mg/dL (8.4-25.7); Calc. Creatinine Clearance 68 mL/min (70-130); Calcium 8.9 mg/dL (7.8-10.44); Carbon Dioxide 20 mmol/L (23-31); Chloride 108 mmol/L (98-107); Estimated GFR 87; Glucose 109 mg/dL (83-110); Potassium 3.9 mmol/L (3.5-5.1); Sodium 141 mmol/L (136-145)
[2021-11-14 08:04] VITALS: BP 135/82; TEMP 98
[2021-11-14] MEDS ORDERED: Bicalutamide 50 MG TAB PO SCH (09:00)
== END 2021-11-14 08:02 | disposition home or self-care (01) | DRG 722 ==
LOC: ERS 12:25 → T4-A 15:26
PROVIDERS: ADMIT Internal Medicine; ATTEND Internal Medicine
DX: C61 Malignant neoplasm of prostate (principal); G93.41 Metabolic encephalopathy; E03.9 Hypothyroidism, unspecified; N40.1 Benign prostatic hyperplasia with lower urinary tract symptoms; R33.8 Other retention of urine; E11.9 Type 2 diabetes mellitus without complications; R97.20 Elevated prostate specific antigen [PSA]; E86.0 Dehydration; Z28.82 Immunization not carried out because of caregiver refusal; Z87.440 Personal history of urinary (tract) infections; Z79.899 Other long term (current) drug therapy; Z79.890 Hormone replacement therapy
CPT/HCPCS: 36415; 71045; 72148; 74176; 80048; 80053; 81003; 81015; 83605; 84153; 85025; 87040; 87077; 87086; 87186; 93005; 96365; J1644; J2543; J7050; U0003; U0005